=== PATIENT | male | born 1990 | race Caucasian/White ===

== ENCOUNTER 2022-11-17 16:44 | Emergency (ER) | payer OTHER ==
[2022-11-17 16:50] VITALS: BP 98/53; PULSE 78; RESP 18; TEMP 98.7; BMI 28.3
[2022-11-17] MEDS ORDERED: HALOPERIDOL DECANOATE 100 MG/ML IM ONE (17:20)
[2022-11-17] MEDS ORDERED: HALOPERIDOL LACTATE 5 MG/ML IM ONE (17:21)
[2022-11-17] MEDS ORDERED: LORazepam 2 MG/ML SDV VIAL IM ONE (17:21)
== END 2022-11-17 18:31 | disposition left against medical advice (07) ==
LOC: JER 16:44
DX: R22.42 Localized swelling, mass and lump, left lower limb (principal)
CPT/HCPCS: 99282-25

== ENCOUNTER 2024-12-08 00:44 | Inpatient (IN) | payer OTHER ==
[2024-12-08 01:08] VITALS: BMI 23.1
[2024-12-08] MEDS ORDERED: POLYETHYLENE GLYCOL (HEALTHYLAX) 3350 17 GM PACKET PO PRN (01:36)
[2024-12-08] MEDS ORDERED: MAGNESIUM HYDROX 2400MG/30ML ORAL SUSPENSION 30 ML CUP PO PRN (01:36)
[2024-12-08] MEDS ORDERED: guaiFENesin 600 MG TABLET.ER (FP) PO PRN (01:36)
[2024-12-08] MEDS ORDERED: DICYCLOMINE HCL 10 MG CAPSULE PO PRN (01:36)
[2024-12-08] MEDS ORDERED: MAG HYDROX/AL HYDROX/SIMETH 30 ML UNIT-DOSE CUP PO PRN (01:36)
[2024-12-08] MEDS ORDERED: LOPERAMIDE HCL 2 MG CAPSULE PO PRN (01:36)
[2024-12-08] MEDS ORDERED: BENZONATATE 200 MG CAPSULE PO PRN (01:36)
[2024-12-08] MEDS ORDERED: METHOCARBAMOL 500 MG TABLET PO PRN (01:36)
[2024-12-08] MEDS ORDERED: NALOXONE (NARCAN) HCL 4 MG/0.1 ML SPRAY NS PRN (01:36)
[2024-12-08] MEDS ORDERED: BENZOCAINE/MENTHOL (CHLORASEPTIC ) LOZENGE MM PRN (01:36)
[2024-12-08] MEDS ORDERED: ONDANSETRON *ODT* 4 MG TABLET SL PRN (01:36)
[2024-12-08] MEDS ORDERED: cloNIDine HCL 0.1 MG TABLET PO PRN (01:36)
[2024-12-08] MEDS ORDERED: ACETAMINOPHEN 325 MG TABLET (FP) PO PRN (01:36)
[2024-12-08] MEDS ORDERED: hydrOXYzine PAMOATE 25 MG CAPSULE (FP) PO PRN (01:36)
[2024-12-08] MEDS ORDERED: BISMUTH SUBSALICYLATE 524 MG/30 ML PO PRN (01:36)
[2024-12-08] MEDS: BUPRENORPHINE/NALOXONE 0.5 MG/0.125 MG FILM SL ONE (02:32)
[2024-12-08] MEDS: methaDONE HCL 10 MG TABLET (FOR DETOX USE ONLY) PO ONE ×2 (02:34→10:10)
[2024-12-08] MEDS: diazePAM 5 MG TABLET PO SCH (06:01)
[2024-12-08] MEDS: levETIRAcetam 500 MG TABLET (FP) PO SCH (10:10)
[2024-12-08] MEDS: BUPRENORPHINE/NALOXONE 0.5 MG/0.125 MG FILM SL SCH (10:11)
[2024-12-08] MEDS: PRENATAL VITAMINS W/ FOLIC ACID TABLET (FP) PO SCH (10:11)
[2024-12-08] MEDS: NICOTINE 21 MG/24 HOURS TOPICAL PATCH TD SCH (10:11)
[2024-12-08 11:15] LABS: HEMATOCRIT 38.2 % (40.1-51.0); HEMOGLOBIN 12.4 g/dL (13.7-17.5); MCHC 32.5 g/dl (32.3-36.5); MEAN CELL VOLUME 86.8 fl (79.0-92.2); PLATELET COUNT 435 x10^3/uL (163-337); RDW 15.3 % (12.0-15.6)
[2024-12-08 11:19] LABS: CHLORIDE 106 mmol/L (98-107); POTASSIUM 4.1 mmol/L (3.5-5.1); SODIUM 139 mmol/L (136-145)
[2024-12-08 11:27] LABS: SGPT/ALT 15 U/L (13-61)
[2024-12-08 11:28] LABS: CREATININE 0.6 mg/dL (0.55-1.3); SGOT/AST 12 U/L (15-37)
[2024-12-08 11:29] LABS: BILIRUBIN,TOTAL 0.4 mg/dL (0.2-1); CALCIUM 9.5 mg/dL (8.5-10.1); TOT PROT 7.2 g/dl (6.4-8.2)
[2024-12-08 11:30] LABS: ALBUMIN 3.4 g/dl (3.4-5.0); ALK PHOS 96 U/L (45-117); ANION GAP 7 mmol/L (4-13); BLOOD UREA NITROGEN 12.3 mg/dL (7-18); CO2 26 mmol/L (21-32); GLUCOSE,RANDOM 124 mg/dL (74-106)
[2024-12-08] MEDS: OLANZapine 5 MG TABLET PO SCH (22:06)
[2024-12-08] MEDS: DIVALPROEX SODIUM 250 MG TABLET E.C. PO SCH (22:07)
[2024-12-08] MEDS: THIAMINE 100 MG TABLET PO SCH (22:07)
[2024-12-08] MEDS: MELATONIN 5 MG TABLETS PO SCH (22:07)
[2024-12-09] MEDS: diazePAM 5 MG TABLET PO SCH (05:50)
[2024-12-09] MEDS: BUPRENORPHINE/NALOXONE 0.5 MG/0.125 MG FILM SL SCH (09:26)
[2024-12-09] MEDS: diazePAM 5 MG TABLET PO PRN (09:27)
[2024-12-09] MEDS: IBUPROFEN 400 MG TABLET (FP) PO PRN (14:06)
[2024-12-09] MEDS: IBUPROFEN 600 MG TABLET (FP) PO PRN (21:51)
[2024-12-10] MEDS: diazePAM 5 MG TABLET PO SCH (05:40)
[2024-12-10] MEDS: BUPRENORPHINE/NALOXONE 2 MG/0.5 MG FILM PACKET SL SCH (10:29)
[2024-12-10] MEDS: methaDONE HCL 10 MG TABLET (FOR DETOX USE ONLY) PO ONE (10:31)
[2024-12-10] MEDS: DIVALPROEX SODIUM 500 MG TABLET E.C. PO SCH (14:45)
[2024-12-10] MEDS: OLANZapine 10 MG TABLET PO SCH (21:21)
[2024-12-11] MEDS ORDERED: diazePAM 5 MG TABLET PO ONE (06:00)
[2024-12-11] MEDS: BUPRENORPHINE/NALOXONE 4 MG/1 MG FILM PACKET SL SCH (09:22)
[2024-12-11] MEDS ORDERED: OLANZapine 10 MG TABLET PO SCH (10:00)
[2024-12-11] MEDS: clonazePAM 1 MG ODT TABLETS SL ONE (10:29)
[2024-12-11] MEDS: ACETAMINOPHEN 325 MG TABLET (FP) PO PRN (17:21)
[2024-12-11] MEDS: NICOTINE POLACRILEX 4 MG GUM BUC PRN (19:05)
[2024-12-11] MEDS: METHOCARBAMOL 500 MG TABLET PO PRN (22:08)
[2024-12-11] MEDS: clonazePAM 1 MG ODT TABLETS SL SCH (22:09)
[2024-12-12] MEDS: BUPRENORPHINE/NALOXONE 8 MG/2 MG FILM PACKET SL SCH (09:44)
[2024-12-12] MEDS: methaDONE HCL 10 MG TABLET (FOR DETOX USE ONLY) PO ONE (09:45)
[2024-12-12 17:03] VITALS: TEMP 97.5
[2024-12-12 20:30] VITALS: RESP 16
[2024-12-13 06:29] VITALS: BP 122/78; PULSE 87
[2024-12-13] MEDS: BUPRENORPHINE/NALOXONE 8 MG/2 MG FILM PACKET SL SCH (09:34)
== END 2024-12-13 09:41 | disposition other institution (70) | DRG 773 ==
LOC: YASAS 00:44 → Y3N 02:09
PROVIDERS: ADMIT Allergy & Immunology; ATTEND Allergy & Immunology
PROC: HZ2ZZZZ Detoxification Services for Substance Abuse Treatment (ICD-10-PCS; principal; 2024-12-08)
DX: F11.23 Opioid dependence with withdrawal (principal); F10.230 Alcohol dependence with withdrawal, uncomplicated; F13.20 Sedative, hypnotic or anxiolytic dependence, uncomplicated; F14.20 Cocaine dependence, uncomplicated; F12.20 Cannabis dependence, uncomplicated; F17.210 Nicotine dependence, cigarettes, uncomplicated; F25.0 Schizoaffective disorder, bipolar type; F19.24 Other psychoactive substance dependence with psychoactive substance-induced mood disorder; F41.9 Anxiety disorder, unspecified; G40.909 Epilepsy, unspecified, not intractable, without status epilepticus; I10 Essential (primary) hypertension; J45.909 Unspecified asthma, uncomplicated; Z89.211 Acquired absence of right upper limb below elbow
CPT/HCPCS: 36415; 71046-TC-FY; 80053; 80305; 80307; 85027; 86780; 93005; 93010

== ENCOUNTER 2025-02-10 04:27 | Inpatient (IN) | payer OTHER ==
[2025-02-10 04:35] VITALS: BMI 26.2
[2025-02-10] MEDS ORDERED: NALOXONE (NARCAN) HCL 4 MG/0.1 ML SPRAY NS PRN (06:18)
[2025-02-10] MEDS ORDERED: POLYETHYLENE GLYCOL (HEALTHYLAX) 3350 17 GM PACKET PO PRN (06:18)
[2025-02-10] MEDS ORDERED: IBUPROFEN 400 MG TABLET (FP) PO PRN (06:18)
[2025-02-10] MEDS ORDERED: DICYCLOMINE HCL 10 MG CAPSULE PO PRN (06:18)
[2025-02-10] MEDS ORDERED: LOPERAMIDE HCL 2 MG CAPSULE PO PRN (06:18)
[2025-02-10] MEDS ORDERED: BENZONATATE 200 MG CAPSULE PO PRN (06:18)
[2025-02-10] MEDS ORDERED: MAG HYDROX/AL HYDROX/SIMETH 30 ML UNIT-DOSE CUP PO PRN (06:18)
[2025-02-10] MEDS ORDERED: ACETAMINOPHEN 325 MG TABLET (FP) PO PRN (06:18)
[2025-02-10] MEDS ORDERED: MAGNESIUM HYDROX 2400MG/30ML ORAL SUSPENSION 30 ML CUP PO PRN (06:18)
[2025-02-10] MEDS ORDERED: BISMUTH SUBSALICYLATE 524 MG/30 ML PO PRN (06:18)
[2025-02-10] MEDS ORDERED: ONDANSETRON *ODT* 4 MG TABLET SL PRN (06:18)
[2025-02-10] MEDS ORDERED: NICOTINE POLACRILEX 2 MG GUM BUC PRN (06:18)
[2025-02-10] MEDS ORDERED: guaiFENesin 600 MG TABLET.ER (FP) PO PRN (06:18)
[2025-02-10] MEDS ORDERED: BENZOCAINE/MENTHOL (CHLORASEPTIC ) LOZENGE MM PRN (06:18)
[2025-02-10] MEDS ORDERED: IBUPROFEN 600 MG TABLET (FP) PO PRN (06:18)
[2025-02-10] MEDS: levETIRAcetam 500 MG TABLET (FP) PO SCH (10:27)
[2025-02-10] MEDS: NICOTINE 21 MG/24 HOURS TOPICAL PATCH TD SCH (10:27)
[2025-02-10] MEDS: PRENATAL VITAMINS W/ FOLIC ACID TABLET (FP) PO SCH (10:27)
[2025-02-10] MEDS: hydrOXYzine PAMOATE 25 MG CAPSULE (FP) PO PRN (17:10)
[2025-02-10] MEDS: METHOCARBAMOL 500 MG TABLET PO PRN (17:10)
[2025-02-10] MEDS: BUPRENORPHINE/NALOXONE 8 MG/2 MG FILM PACKET SL SCH (18:37)
[2025-02-10] MEDS: MELATONIN 5 MG TABLETS PO SCH (22:52)
[2025-02-10] MEDS: MIRTAZAPINE 15 MG TABLET (FP) PO SCH (22:53)
[2025-02-10] MEDS: THIAMINE 100 MG TABLET PO SCH (22:53)
[2025-02-11] MEDS: BUPRENORPHINE/NALOXONE 0.5 MG/0.125 MG FILM SL ONE ×2 (10:28→22:56)
[2025-02-11 10:54] LABS: MCHC 32.0 g/dl (32.3-36.5); MEAN CELL VOLUME 88.1 fl (79.0-92.2); MEAN PLT VOLUME 11.7 fl (9.4-12.4); RDW 15.9 % (12.0-15.6)
[2025-02-11 12:13] LABS: GLUCOSE,RANDOM 93 mg/dL (74-106); TOT PROT 7.5 g/dl (6.4-8.2)
[2025-02-11 12:14] LABS: CO2 22 mmol/L (21-32)
[2025-02-11 12:16] LABS: ALK PHOS 93 U/L (40-150)
[2025-02-11 12:19] LABS: CREATININE 0.59 mg/dL (0.55-1.3); SGOT/AST 27 U/L (5-34); SGPT/ALT 15 U/L (0-55)
[2025-02-11] MEDS: SODIUM POLYSTYRENE SULFONATE 15 GM/60 ML BOTTLE PO ONE (13:01)
[2025-02-11] MEDS: MIRTAZAPINE 15 MG TABLET (FP) PO SCH (22:42)
[2025-02-12] MEDS: BUPRENORPHINE/NALOXONE 0.5 MG/0.125 MG FILM SL SCH (10:19)
[2025-02-12] MEDS: clonazePAM 1 MG ODT TABLETS SL ONE (13:19)
[2025-02-13] MEDS: BUPRENORPHINE/NALOXONE 2 MG/0.5 MG FILM PACKET SL SCH (10:16)
[2025-02-14] MEDS: BUPRENORPHINE/NALOXONE 4 MG/1 MG FILM PACKET SL SCH (10:12)
[2025-02-15] MEDS: BUPRENORPHINE/NALOXONE 8 MG/2 MG FILM PACKET SL SCH (09:31)
[2025-02-16] MEDS: BUPRENORPHINE/NALOXONE 8 MG/2 MG FILM PACKET SL SCH (09:19)
[2025-02-16 09:26] VITALS: BP 103/61; PULSE 63; RESP 12; TEMP 96
== END 2025-02-16 09:24 | disposition other institution (70) | DRG 773 ==
LOC: YASAS 04:27 → Y3N 07:11
PROVIDERS: ADMIT Allergy & Immunology; ATTEND Allergy & Immunology
PROC: HZ2ZZZZ Detoxification Services for Substance Abuse Treatment (ICD-10-PCS; principal; 2025-02-10)
DX: F11.23 Opioid dependence with withdrawal (principal); F14.20 Cocaine dependence, uncomplicated; F13.20 Sedative, hypnotic or anxiolytic dependence, uncomplicated; F17.210 Nicotine dependence, cigarettes, uncomplicated; F20.9 Schizophrenia, unspecified; F31.9 Bipolar disorder, unspecified; F41.9 Anxiety disorder, unspecified; G47.00 Insomnia, unspecified; I10 Essential (primary) hypertension
CPT/HCPCS: 36415; 80053; 80164; 80307; 84132; 85027; 86780; 93005; 93010